=== PATIENT | female | born 1960 | race Native Hawaiian/Other Pacific Islander ===

== ENCOUNTER 2016-12-24 05:50 | Day surgery (SDC) | payer OTHER ==
[2016-12-24] MEDS ORDERED: Midazolam 2 MG/2 ML VIAL ONE (07:20)
[2016-12-24] MEDS ORDERED: Propofol 10 mg/ml Inj (20 ML) ONE (07:21)
[2016-12-24] MEDS ORDERED: Methylene Blue 10 mg/mL(10ml) IV ONE (07:32)
[2016-12-24] MEDS ORDERED: ceFAZolin IV 2 gm in Dextrose 1 GM/50 ML BAG IVPB ONE (07:33)
[2016-12-24] MEDS ORDERED: Lactated Ringer's 1,000 ML IV ONE ×2 (08:07→10:30)
[2016-12-24] MEDS ORDERED: Bupivacaine-Epi 0.25%-1:200,000 PF Inj ONE (08:27)
[2016-12-24] MEDS ORDERED: Rocuronium 10 mg/ml (5 ml) ONE (08:29)
[2016-12-24] MEDS ORDERED: Morphine 4 MG/ML VIAL ONE ×2 (10:29→11:35)
[2016-12-24] MEDS ORDERED: Neostigmine Methylsulfate 3mg/3ml Syringe IV ONE (11:30)
[2016-12-24] MEDS ORDERED: Clindamycin 2% Vaginal Cream(40 gm) ONE (11:58)
[2016-12-24] MEDS ORDERED: ceFAZolin IV 1 gm in Dextrose 1 GM/50 ML BAG IVPB SCH (12:45)
[2016-12-24] MEDS ORDERED: HYDROmorphone 0.5 mg/0.5 ml ISec IVP PRN (12:45)
[2016-12-24] MEDS ORDERED: Lactated Ringer's 1,000 ML IV SCH (12:45)
--- NOTE | 2016-12-24 12:45 | PCM.SURG1 ---
Surgeon's Initial Post Op Note - Surgeon's Notes Surgeon: Perla Siu MD Patient Financial Services Coordinator: Sarmad Curry< Type of Anesthesia: General Endo Pre-Operative Diagnosis: Pelvic Pain, endoemtriosis, postmenopausal bleeding Operative Findings: 8-10 week size anteverted uteurs, nromal tubes bilaterally, atrohic appearing ovaries, bilateral utreral jets on cystsopcy. Dr Sarmad Curry was present for entire case and essential in gainign entry, retraction, expousre , heping to gain laparasopicl endtry, holding camera,holding uterine maniuptlroy , removing specimen and obtainign hemostais, closer of all layers. Post-Operative Diagnosis: same as above, fibroids Operation Performed: Laparascopi cassistasted vaginal hysterectomy, bilateral salpingooophrecotmy, cystoscopy Specimen/Specimens Removed: uterus, cervix, ovaries, and tubes bitallaery Estimated Blood Loss: EBL {In ML}: 250 Blood Products Given: N/A Drains Used: No Drains Post-Op Condition: Good Date of Surgery/Procedure: 12/24/16 Time of Surgery/Procedure: 09:00
[2016-12-24] MEDS ORDERED: Morphine Monoject Barrel PCA 1mg/ml IV PRN (12:47)
[2016-12-24] MEDS: ceFAZolin IV 1 gm in Dextrose 1 GM/50 ML BAG IVPB SCH (17:24)
[2016-12-24 20:05] LABS: BASO % 0.1 % (0.0-2.0); HEMATOCRIT 32.8 % (34.0-47.0); LYMPH # 0.6 K/uL (1.0-4.3); LYMPH % 6.8 % (20.0-40.0); MEAN CELL VOLUME 91.2 fL (81.0-99.0); MEAN CORPUSCULAR HEMOGLOBIN 30.2 pg (27.0-31.0); MEAN CORPUSCULAR HGB CONC 33.1 g/dL (33.0-37.0); MEAN PLATELET VOLUME 10.4 fL (7.2-11.7); MONO # 0.3 K/uL (0.0-0.8); MONO % 2.9 % (0.0-10.0); PLATELET COUNT 175 K/uL (130-400); RED CELL DISTRIBUTION WIDTH 13.4 % (11.5-14.5); WHITE BLOOD COUNT 9.4 K/uL (4.8-10.8)
[2016-12-24 20:14] LABS: CHLORIDE 101 mmol/L (98-107); POTASSIUM 4.3 mmol/L (3.6-5.2); SODIUM 131 mmol/L (132-148)
[2016-12-24 20:16] LABS: ALB/GLOB RATIO 1.6 (1.0-2.1); AST/SGOT 24 U/L (14-36); BILIRUBIN,TOTAL 0.6 mg/dL (0.2-1.3); BLOOD UREA NITROGEN 14 mg/dL (7-17); CARBON DIOXIDE 23 mmol/L (22-30); GFR AFRICAN-AMERICAN > 60; TOTAL PROTEIN 5.9 g/dL (6.3-8.3)
[2016-12-24 20:17] LABS: ALKALINE PHOSPHATASE 54 U/L (38-126); ALT/SGPT 30 U/L (9-52); CALCIUM 8.2 mg/dl (8.6-10.4); GLUCOSE,RANDOM 122 mg/dL (65-105)
[2016-12-24 21:34] LABS: NEUTROPHIL 87 % (50-75); TOTAL CELLS COUNTED 100
[2016-12-25] MEDS: ceFAZolin IV 1 gm in Dextrose 1 GM/50 ML BAG IVPB SCH ×2 (01:50→08:17)
[2016-12-25] MEDS ORDERED: Oxycodone/Acetaminophen 5/325 mg Tab PO PRN ×2 (02:00)
--- NOTE | 2016-12-25 07:48 | CP.PCM.PN ---
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 Per nursing no acute events overnight. 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 OOB to chair. Tolerating diet. Gonzáles catheter out this am. Denies passing flatus or BM. Denies headaches, dizziness, cp, palpitations, sob, urinary complaints. Objective - Vital Signs/Intake and Output Vital Signs (last 24 hours): Temp Pulse Resp BP Pulse Ox 98.8 F 68 20 94/56 L 100 12/24/16 20:00 12/24/16 20:00 12/24/16 20:00 12/24/16 20:00 12/24/16 20:00 Intake and Output: 12/25/16 12/25/16 06:59 18:59 Intake Total 1925 Output Total 1700 Balance 225 - Medications Medications: Current Medications Acetaminophen (Tylenol 325mg Tab) 650 mg PO Q6 PRN PRN Reason: Fever >100.4 F Lactated Ringer's (Lactated Ringer's) 1,000 mls @ 125 mls/hr IV .Q8H SIM Cefazolin Sodium/Dextrose (Ancef Iv 1 Gm Duplex) 1 gm in 50 mls @ 100 mls/hr IVPB Q8H SIM Stop: 12/25/16 08:59 Last Admin: 12/25/16 01:50 Dose: 100 mls/hr Ibuprofen (Motrin Tab) 600 mg PO Q6H PRN PRN Reason: Pain, Mild (1-3) Ketorolac Tromethamine (Toradol) 30 mg IVP Q6 PRN PRN Reason: Pain, moderate (4-7) Morphine Sulfate/Sodium Chloride (Morphine Greenskeeper Head Monoject Barrel) 30 mg IV Q4H PRN; Protocol PRN Reason: Pain, severe (8-10) Stop: 12/25/16 12:47 Last Admin: 12/24/16 14:50 Dose: 30 mg Ondansetron HCl (Zofran Inj) 4 mg IVP Q8H PRN PRN Reason: Nausea/Vomiting Oxycodone/Acetaminophen (Percocet 5/325 Mg Tab) 1 tab PO Q4H PRN PRN Reason: Pain, moderate (4-7) Stop: 12/28/16 02:01 Oxycodone/Acetaminophen (Percocet 5/325 Mg Tab) 2 tab PO Q4H PRN PRN Reason: Pain, severe (8-10) Stop: 12/28/16 02:01 Simethicone (Mylicon Chew Tab) 80 mg PO QID SIM - Labs Labs: 12/24/16 19:59 12/24/16 19:59 - Constitutional Appears: No Acute Distress - Head Exam Head Exam: ATRAUMATIC, NORMAL INSPECTION - Eye Exam Eye Exam: EOMI, Normal appearance Pupil Exam: NORMAL ACCOMODATION - ENT Exam ENT Exam: Mucous Membranes Moist - Neck Exam Neck Exam: Full ROM - Respiratory Exam Respiratory Exam: Clear to Ausculation Bilateral, NORMAL BREATHING PATTERN. absent: Rhonchi, Wheezes - Cardiovascular Exam Cardiovascular Exam: REGULAR RHYTHM, +S1, +S2 - GI/Abdominal Exam GI & Abdominal Exam: Distended, Soft, Tenderness (Appropriately tender), Hypoactive Bowel Sounds. absent: Guarding, Rigid Additional comments: Dressing c/d/i with steri strips - Extremities Exam Extremities Exam: Full ROM, Normal Inspection - Back Exam Back Exam: NORMAL INSPECTION - Neurological Exam Neurological Exam: Alert, Awake, Oriented x3 - Psychiatric Exam Psychiatric exam: Normal Affect, Normal Mood Assessment and Plan - Assessment and Plan (Free Text) Assessment: 56 year old female with history of pelvic pain, endometriosis, postmenopausal bleeding s/p Laparoscopic assisted vaginal hysterectomy with BSO and cystoscopy POD#1 Plan: 1. Stable, afebrile 2. 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 Zofran prn nausea, Simethicone 80mg QID ordered 4. F/U am CBC 5. Vaginal packing removed 6. Gonzáles out, f/u voiding trial 7. Advance diet as tolerated 8. Encourage ambulation and hydration; Encourage ISS use 9. Continue routine post op care 10. Plan d/w attending
[2016-12-25 08:08] LABS: BASO % 0.2 % (0.0-2.0); EOS % 0.2 % (0.0-4.0); HEMATOCRIT 32.6 % (34.0-47.0); LYMPH # 1.2 K/uL (1.0-4.3); LYMPH % 12.2 % (20.0-40.0); MEAN CELL VOLUME 90.2 fL (81.0-99.0); MEAN CORPUSCULAR HEMOGLOBIN 29.7 pg (27.0-31.0); MEAN CORPUSCULAR HGB CONC 32.9 g/dL (33.0-37.0); MEAN PLATELET VOLUME 10.4 fL (7.2-11.7); MONO # 0.6 K/uL (0.0-0.8); MONO % 6.6 % (0.0-10.0); RED CELL DISTRIBUTION WIDTH 13.5 % (11.5-14.5); WHITE BLOOD COUNT 9.5 K/uL (4.8-10.8)
[2016-12-25 08:52] VITALS: BP 80/51; PULSE 70; RESP 18; TEMP 98.1; O2SAT 98
[2016-12-25] MEDS: Simethicone 80 mg Chewtab PO SCH ×2 (09:20→13:02)
--- NOTE | 2016-12-25 13:42 | OP ---
PROCEDURE DATE: 12/24/2016 PREOPERATIVE DIAGNOSES: Pelvic pain, endometriosis, and postmenopausal bleeding. POSTOPERATIVE DIAGNOSES: Pelvic pain, endometriosis, postmenopausal bleeding, and fibroids. PROCEDURES PERFORMED: Laparoscopic assisted vaginal hysterectomy, bilateral salpingo-oophorectomy, and cystoscopy. SURGEON: Perla Siu MD FARMER C[employer] GRAIN: Sarmad Curry MD TYPE OF ANESTHESIA: General endotracheal. OPERATIVE FINDINGS: An 8 to 10-weeks' sized anteverted uterus, normal tubes bilaterally, atrophic ovaries appearing bilaterally, and bilateral ureteral jets on cystoscopy. Dr. Sarmad Curry was present for the entire case and essentially in gaining anterior retraction and closure, helping to gain laparoscopic entry, holding the camera, holding the uterine manipulator, removing the specimen, entering laparoscopically, removing all trocars, closing the vaginal cuff from below, obtaining hemostasis, and closing all layers and was present for the entire case. ESTIMATED BLOOD LOSS: 250 mL. BLOOD PRODUCTS: None. COMPLICATIONS: None. SPECIMEN REMOVED: Uterus, cervix, ovaries, and tubes bilaterally. DESCRIPTION OF THE PROCEDURE: The patient was seen at the preoperative area. Risks, benefits, alternatives, indications, and alternatives of the procedure were reviewed with the patient. The patient agreed to the procedure and signed a consent. The patient was taken to the OR with pneumatic stocking compressions applied to the lower extremities. General anesthesia was obtained without difficulty with IV fluids running. The patient was placed in the dorsal lithotomy position with Sal-type stirrups and the knee bent at 30-degree angle. Examination under anesthesia revealed the findings as mentioned above. The patient was prepped and draped and the Gonzáles catheter was inserted and the bladder was emptied. A time-out was confirmed, correct patient and correct procedure. The patient was given preoperative prophylactic antibiotic. The speculum was placed into the vagina and anterior lip of the cervix was grasped with a single-toothed tenaculum. An uterine manipulator with colpotomy cup was then introduced and the tenaculum was removed. Attention was then turned to the abdomen, where the surgeon re-gloved. Two towel clamps were applied to the periumbilical skin for manual elevation of the abdomen. A small horizontal skin incision was made in the infraumbilical fold after Marcaine local anesthetic was administered. The Veress needle was introduced into the peritoneal cavity at a straight angle without difficulty. A saline drop test was performed to evaluate the enteroperitoneal placement. The pneumoperitoneum was established with the CO2 gas to a pressure of 15 mmHg. A 5 mm trocar was inserted into the abdomen under direct visualization with the laparoscope and intraabdominal placement was confirmed. Intraabdominal survey revealed a slightly enlarged uterus with 2 subserosal small myomas, normal tubes, and ovaries, which did appear atrophic. The pelvic anatomy was noted as above. Two 5 mm trocars were inserted in the bilateral lower quadrants 8 cm from the midline under direct visualization after administrating local anesthetic. The Trendelenburg position was obtained to facilitate moving bowel and omentum out of the pelvis. The uterus was elevated from the pelvis with the uterine manipulator. The right ovary was retracted anteriorly using atraumatic grasper to mobilize infundibular pelvic ligament away from the sidewall. The IP ligament was clamped, coagulated, and transected with a 5 mm LigaSure device. Peristalsis of the ureter was noted at the pelvic brim. The round and broad ligaments were sequentially transected with LigaSure device until a uterine artery was exposed. The procedure was repeated on the left side. Laparoscopic resections were completed at this time. The pneumoperitoneum was released. The patient was repositioned in the dorsal lithotomy position with the legs flexed and slightly abducted. The cervix was grasped with a double tooth tenaculum. The circumferential incision around the cervix was made with Bovie. Blunt and sharp dissection was performed along the appropriate plain. The posterior cul-de-sac was entered sharply with Pittman scissors and bloody peritoneal fluid was noted. Significant uterine descent was noted after the uterosacral and cardinal ligament were sequentially clamped, transected, and suture ligated. The anterior cul-de-sac was then entered with no difficulty. The uterine vessels were identified, clamped, cut, and ligated. The uterus, tubes, and ovaries were delivered and intact through the vagina and sent to pathology. The vaginal transected to the uterosacral ligament. The vaginal cuff was closed with a [id number] suture. The pneumoperitoneum was reestablished and the pelvis was thoroughly inspected with no active bleeding noted. All instruments were removed from the abdomen and vagina. At this point, all counts were noted to be correct. Following this point, cystoscopy was then performed with a Lebanese catheter in which a Gonzáles catheter was removed and the cystoscope was then inserted and there was bilateral ureteral jets noted at each ureter. No bladder pathology was noted with no sutures and no evidence of bleeding. All instruments were removed. At the end of the procedure, all needles, sponge, and instrument counts were noted as correct x2. The patient tolerated the procedure well and was transferred to the recovery room in stable condition. Perla Siu MD
--- NOTE | 2016-12-25 15:39 | CP.PCM.DIS ---
Provider - Provider Date of Admission: 12/24/16 12:40 Attending physician: Perla Siu MD Time Spent in preparation of Discharge (in minutes): 30 Diagnosis - Discharge Diagnosis (1) S/P laparoscopic hysterectomy Status: Acute Hospital Course - Lab Results Lab Results: Most Recent Lab Values WBC 9.5 K/uL (4.8-10.8) 12/25/16 08:02 RBC 3.61 Mil/uL (3.80-5.20) L 12/25/16 08:02 Hgb 10.7 g/dL (11.0-16.0) L 12/25/16 08:02 Hct 32.6 % (34.0-47.0) L 12/25/16 08:02 MCV 90.2 fL (81.0-99.0) 12/25/16 08:02 MCH 29.7 pg (27.0-31.0) 12/25/16 08:02 MCHC 32.9 g/dL (33.0-37.0) L 12/25/16 08:02 RDW 13.5 % (11.5-14.5) 12/25/16 08:02 Plt Count 168 K/uL (130-400) 12/25/16 08:02 MPV 10.4 fL (7.2-11.7) 12/25/16 08:02 Neut % (Auto) 80.8 % (50.0-75.0) H 12/25/16 08:02 Lymph % (Auto) 12.2 % (20.0-40.0) L 12/25/16 08:02 [place] % (Auto) 6.6 % (0.0-10.0) 12/25/16 08:02 Eos % (Auto) 0.2 % (0.0-4.0) 12/25/16 08:02 Baso % (Auto) 0.2 % (0.0-2.0) 12/25/16 08:02 Neut # 7.7 K/uL (1.8-7.0) H 12/25/16 08:02 Lymph # 1.2 K/uL (1.0-4.3) 12/25/16 08:02 [place] # 0.6 K/uL (0.0-0.8) 12/25/16 08:02 Eos # 0.0 K/uL (0.0-0.7) 12/25/16 08:02 Baso # 0.0 K/uL (0.0-0.2) 12/25/16 08:02 Neutrophils % (Manual) 87 % (50-75) H 12/24/16 19:59 Lymphocytes % (Manual) 11 % (20-40) L 12/24/16 19:59 Monocytes % (Manual) 2 % (0-10) 12/24/16 19:59 Platelet Estimate Normal (NORMAL) 12/24/16 19:59 Sodium 131 mmol/L (132-148) L 12/24/16 19:59 Potassium 4.3 mmol/L (3.6-5.2) 12/24/16 19:59 Chloride 101 mmol/L (98-107) 12/24/16 19:59 Carbon Dioxide 23 mmol/L (22-30) 12/24/16 19:59 Anion Gap 11 (10-20) 12/24/16 19:59 BUN 14 mg/dL (7-17) 12/24/16 19:59 Creatinine 0.6 mg/dL (0.7-1.2) L 12/24/16 19:59 Est GFR ( Amer) > 60 12/24/16 19:59 Est GFR (Non-Af Amer) > 60 12/24/16 19:59 Random Glucose 122 mg/dL (65-105) H 12/24/16 19:59 Calcium 8.2 mg/dl (8.6-10.4) L 12/24/16 19:59 Total Bilirubin 0.6 mg/dL (0.2-1.3) 12/24/16 19:59 AST 24 U/L (14-36) 12/24/16 19:59 ALT 30 U/L (9-52) 12/24/16 19:59 Alkaline Phosphatase 54 U/L (38-126) 12/24/16 19:59 Total Protein 5.9 g/dL (6.3-8.3) L 12/24/16 19:59 Albumin 3.6 g/dL (3.5-5.0) 12/24/16 19:59 Globulin 2.3 gm/dL (2.2-3.9) 12/24/16 19:59 Albumin/Globulin Ratio 1.6 (1.0-2.1) 12/24/16 19:59 Blood Type O POSITIVE 12/24/16 07:11 Antibody Screen Negative 12/24/16 07:11 - Hospital Course Hospital Course: s/p laparascopic assisted vaignal hysterecotmy bso, cysrsocpi inital pain pod 1 controlled urinating, passng flauts, ambaitng, tolering diet stalbe for dc/ Discharge Exam - Head Exam Head Exam: ATRAUMATIC, NORMAL INSPECTION - ENT Exam ENT Exam: Mucous Membranes Dry, Mucous Membranes Moist - Respiratory Exam Respiratory Exam: Clear to PA & Lateral, NORMAL BREATHING PATTERN - Cardiovascular Exam Cardiovascular Exam: +S1, +S2 - GI/Abdominal Exam GI & Abdominal Exam: Normal Bowel Sounds, Soft, Unremarkable - Exam Additional comments: normal, no blood, - Back Exam Additional comments: negative ivory's sign Discharge Plan - Follow Up Plan Condition: GOOD Disposition: HOME/ ROUTINE Instructions: Laparoscopic Hysterectomy (DC)
== END 2016-12-25 15:24 | disposition home or self-care (01) ==
LOC: C.SDS 05:50 → EDSTATUS 07:45 → C.4M 12:40 → UNDOADMIN 12:40 → C.SDS 12-25 15:24 → UNDODISIN 12-25 15:24
PROVIDERS: ATTEND Obstetrics & Gynecology
DX: D25.0 Submucous leiomyoma of uterus (principal); D25.1 Intramural leiomyoma of uterus; N80.0 Endometriosis of uterus; N85.8 Other specified noninflammatory disorders of uterus; N83.312 Acquired atrophy of left ovary; N83.311 Acquired atrophy of right ovary; N95.0 Postmenopausal bleeding
CPT/HCPCS: 36415; 52000; 58552; 80053; 85025; 86850; 86900; 88307; 94760; 94770; C2615; J0690; J1100; J1170; J1885; J2001; J2250; J2270; J2405; J2704; J2710; J3010; J7120